=== PATIENT | female | born 1985 | race Asian ===

== ENCOUNTER 2020-12-06 06:35 | Inpatient (IN) | payer BC, SELFPAY ==
[2020-12-06] VITALS (43 sets, daily range): BP systolic 92–146; BP diastolic 64–95; PULSE 66–91; RESP 18; TEMP 36.4–37.1; O2SAT 100; BMI 27.6
[2020-12-06 07:21] LABS: Basophils Percent Auto 0.4 % (0.2-1.2); Eosinophils Absolute Auto 0.1 K/mm3 (0-0.3); Eosinophils Percent Auto 1.4 % (0-4.4); Hematocrit 38.4 % (37.0-47.0); Hemoglobin 12.8 g/dL (12.0-15.0); Immature Granulocyte Percent A 1.1 % (0-0.5); Lymphocytes Percent Auto 21.5 % (18.3-44.2); Mean Corpuscular HGB Conc 33.3 g/dl (32-36); Mean Corpuscular Hemoglobin 28.8 pg (26-34); Mean Corpuscular Volume 86.5 fl (80-100); Mean Platelet Volume 10.9 fl (7.4-10.4); Monocytes Absolute Auto 0.6 K/mm3 (0.1-0.6); Monocytes Percent Auto 6.9 % (2.6-8.5); Neutrophils Absolute Auto 6.4 K/mm3 (1.3-6.7); Neutrophils Percent Auto 68.7 % (45.5-73.1); Platelet Count Result 185 k/mm3 (150-375); Red Blood Count 4.44 M/mm3 (4.2-5.4); Red Cell Distribution Width 15.1 % (11.5-14.5); White Blood Count 9.3 K/mm3 (4.5-10.0)
[2020-12-06] MEDS: OXYTOCIN 30 UNITS/NS 500 ML 30 UNITS/500 ML BAG IV CONT (07:24)
[2020-12-06] MEDS: LACTATED RINGERS 1,000 ML 125 ML IV CONT (07:25)
--- NOTE | 2020-12-06 07:44 | WPDOBADMIT ---
Obstetrics - Admit Note Admission Note: record reviewed. No pertinent additions to the history and/or any subsequent changes in the physical findings that are not consistent with the expected course of the were found. Additions to the history and/or subsequent changes in the physical findings follow. Briefly, 35yo with uncomplicated for elective IOL. Cervix 450/-3 posterior. AROM clear. FHT category 1. Discussed POC. Pitocin per protocol. GBS neg.
--- NOTE | 2020-12-06 07:51 | LDADM ---
This patient, Shira Orourke, was admitted to Labor/Delivery/Recovery 104 on 12/06/20 at 06:35. Plans for labor, pain management and were discussed with patient. Patient/family oriented to hospital policies and general routines including ID bracelet, bed and alarms, visiting hours, pain management, procedures, bathroom and other care routines, personal items, smoking policy, room service/diet and guest tray routines, security routines, and visiting hours. Patient/Family are encouraged to report perceived risks to care and to ask questions if they do not understand what they are told or what they should do. See OBIX for further documentation.
[2020-12-06 09:27] LABS: Rapid Plasma Reagin Non-Reactive (NonReactive)
[2020-12-06] MEDS: fentaNYL CITRATE INJ (*CRX) 100 MCG/2 ML VIAL 50 MCG IV PUSH (14:30)
[2020-12-06] MEDS: OXYTOCIN 30 UNITS/NS 500 ML 30 UNITS/500 ML BAG 125 UNITS IV CONT (17:33)
--- NOTE | 2020-12-06 17:34 | PM.OBPRVD ---
OB - Delivery Note Procedure Delivery date: 12/06/20 Procedure: Intrapartal events: Deceleration (variables) Induction method: AROM and per pitocin protocol Delivery augmentation: rupture of membranes Delivery monitor: external FHT and external uterine Route of delivery: Episiotomy description: None Laceration Description: Perineal - 1st Degree Delivery repair: vicryl Specimen: Yes (placenta for path due to cyst) Quantitative Blood Loss (ml): 400 Anesthesia type: None Disposition: floor Narrative: With adequate expulsive efforts by the mother, the baby's head was delivered OA. The baby's anterior shoulder was delivered under the pubic symphysis without difficulty. The posterior shoulder and the rest of the baby delivered without difficulty. The was placed on the mothers chest and suctioned and stimulated. The cord was clamped and cut after 30 seconds. Mother and baby both stable. [place] Baby Date of : 12/06/20 Time of : 17:01 Weeks of gestation at delivery: 39 Infant gender: Male Weight (pounds): 8 Weight (ounces): 13 presentation: vertex Placenta delivery description: Spontaneous cord vessel description: 3 Vessels and Delayed Cord Clamping score one minute: 8 score five minutes: 9
[2020-12-06] MEDS: IBUPROFEN 600 MG TABLET PO (19:16)
[2020-12-06] MEDS: BENZOCAINE 20% AER SPR (*SP) 56 GM CAN 1 SPRAY TOPICAL (19:17)
[2020-12-06] MEDS: WITCH HAZEL 40 PADS 1 PAD TOPICAL (19:17)
--- NOTE | 2020-12-06 19:37 | PC.NURSE ---
Patient transferred to post room #290 via wheelchair. Support person present. Oriented to unit, room, information board, rooming in, admission packet and security measures. Patient verbalizes understanding.
[2020-12-07] VITALS: BP 129/76; PULSE 86; RESP 18; TEMP 36.7; O2SAT 100
[2020-12-07 03:13] VITALS: BP 120/74; PULSE 82; RESP 18; TEMP 36.8
[2020-12-07 04:44] LABS: Hematocrit 35.5 % (37.0-47.0); Hemoglobin 11.9 g/dL (12.0-15.0)
[2020-12-07 08:00] VITALS: BP 103/71; PULSE 80; RESP 18; TEMP 36.7; O2SAT 99
[2020-12-07] MEDS: IBUPROFEN 600 MG TABLET PO (08:13)
[2020-12-07] MEDS: MULTIVIT/MIN/PREN/FOL AC/IRON TABLET 1 TAB PO (08:13)
--- NOTE | 2020-12-07 10:14 | PM.OBPNVD ---
OB - PN: Subj Subjective Date/time seen: 12/07/20 10:14 Patient comments: no complaints and pain well controlled baby status: doing well and nursing well [place] feeding status: exclusively breast feeding Narrative: Doing great. Wants to go home today. OB - PN: Obj Data Labs CBC & Chem 7: 12/07/20 03:21 Labs: Laboratory Results - last 24 hr 12/07/20 03:21 Hgb 11.9 L Hct 35.5 L OB - PN A/P Plan day: 1 Plan: routine care Comments: Home today. Circ done after consented. Time Spent With Patient Time: Total time spent is greater than 50% in coordination of care (as documented) at patient's floor/unit and/or counseling patient: Time with patient: less than 15 minutes Exam Narrative: Exam Narrative: NAD abdomen soft, nontender, fundus firm below the umbilicus Extremities nontender, 1+ edema
--- NOTE | 2020-12-07 10:20 | PM.DS ---
DS: Admitting Diagnosis Admitting Diagnosis Admitting Diagnosis: term DS: Discharge Diagnosis Discharge Diagnosis (1) , delivered: Code(s): O80 - Encounter for full-term uncomplicated delivery Status: Acute DS: Summary Hospital Course Reason for hospitalization: delivery Hospital Course: Pt had a normal and an uncomplicated course. She was discharged home stable with on PPD 1. Status at Discharge Functional status at discharge: independent ambulation Time Spent with Patient Time attestation: Total time spent providing and/or coordinating discharge services: Time spent: Less than 30 minutes DS: Data Data Completed and Pending Pending studies at discharge: Pending at discharge 12/06/20 17:07 Surgical [PTH] Routine Labs on day of discharge: Labs from last 24 hours 12/07/20 03:21 Hgb 11.9 L Hct 35.5 L Discharge Plan Discharge Attending physician on discharge: Malika Avendano Discharging Clinician: Malika Avendano Anticipated Discharge Date/Time: 12/07/20 17:00 Patient Disposition: Home, Self-Care Activity: pelvic rest Diet: as tolerated Patient Instructions: Antibiotic Form Stand Alone Forms: General Discharge Information Follow-up/Referrals: Malika Avendano MD [Physician] - 4 Weeks Discharge Medications: Continued PNV [id number] [] 28 mg iron- 800 mcg Tablet 1 tablet PO DAILY RF: 0 Date of admission: 12/06/20 06:35 Primary Care Provider: Leila Lorenzo Admitting Provider: Malika Avendano Attending physician on admission: Malika Avendano Condition: Stable
[2020-12-07 12:00] VITALS: BP 130/68; PULSE 83; RESP 16; TEMP 36.3; O2SAT 100
[2020-12-07 16:00] VITALS: BP 130/97; PULSE 82; RESP 18; TEMP 36.9; O2SAT 99
--- NOTE | 2020-12-07 18:39 | PC.NURSE ---
Patient viewed the discharge video Mother & Baby Care, The First Two Weeks . Patient was given the opportunity and encouraged to ask questions. Patient verbalized understanding of information shared and has been given the mother/baby guide for home reference.
[2020-12-09 13:46] VITALS: BP 123/75; PULSE 85; RESP 20; TEMP 36.7; O2SAT 100
== END 2020-12-07 19:18 | disposition home or self-care (01) | DRG 807 ==
LOC: ANHLDR 06:40 → ANHOB2 20:05
PROVIDERS: Admitting Provider Obstetrics & Gynecology; PCP Family Medicine; Visit Provider Obstetrics & Gynecology
DX: O70.0 First degree perineal laceration during delivery (principal); Z37.0 Single live birth; Z3A.39 39 weeks gestation of pregnancy
CPT/HCPCS: 36415; 85014; 85018; 85025; 86592; 86850; 86900; 86901; 88307; 88313; A9270; J2590; J3010; J7120